=== PATIENT | male | born 1950 | race Caucasian/White ===

== ENCOUNTER 2016-11-03 07:32 | Day surgery (SDC) | payer BC ==
[2016-11-03] VITALS (11 sets, daily range): BP systolic 124–154; BP diastolic 70–89
[~2016-11-03] VITALS: Ht 188 cm; Wt 86.6 kg
[~2016-11-03 07:32] MED LIST: AMLODIPINE BESYL5 MG ORAL; LOSARTAN POTASS50 MG ORAL
[2016-11-03] MEDS ORDERED: Midazolam 2mg/2ml Inj ONE (09:00)
[2016-11-03] MEDS ORDERED: fentaNYL 100 mcg/2 mL IV ONE (09:00)
[2016-11-03] MEDS ORDERED: LR 1000ml ONE (09:00)
[2016-11-03] MEDS ORDERED: Sterile Water Irrig 1000ml IRRIG ONE (09:00)
[2016-11-03] MEDS ORDERED: Propofol 10mg/ml 20ml IV ONE (09:00)
[2016-11-03] MEDS ORDERED: NS Irrig 1000ml ONE (09:00)
--- NOTE | 2016-11-03 09:08 | Pre-Procedure Note/Attestation ---
Pre-Procedure Note/Attestation Complete Prior to Procedure Planned Procedure: right Procedure Narrative: repair of right inguinal hernia Indications for Procedure Pre-Operative Diagnosis: right inguinal hernia Attestation I attest that I discussed the nature of the procedure; its benefits; risks and complications; and alternatives (and the risks and benefits of such alternatives ), prior to the procedure, with the patient (or the patient's legal sales representative womens health). I attest that, if there was a reasonable possibility of needing a blood transfusion, the patient (or the patient's legal sales representative womens health) was given the [facility] standardized written summary, pursuant to the [place] Blood Safety Act ([place] Health and Safety Code # 1645, as amended). I attest that I re-evaluated the patient just prior to the surgery and that there has been no change in the patient's H&P, except as documented below: GENEVIEVE MYERS Nov 03, 2016 09:08
[2016-11-03] MEDS ORDERED: Bupivacaine w/Epi 0.5% 30ml Vial INJ ONE (09:15)
[2016-11-03] MEDS ORDERED: NS Irrig 1000ml IRRIG ONE (09:30)
[2016-11-03] MEDS ORDERED: LR 1000ml 1,000 ML IVLG SCH (09:43)
[2016-11-03] MEDS ORDERED: Hydromorphone 0.5mg/0.5ml inj IVP PRN (09:45)
[2016-11-03] MEDS ORDERED: LR 1000ml 1,000 ML IV SCH (09:45)
--- NOTE | 2016-11-03 09:48 | Anethesia Preoperative Eval ---
Anesthesia Pre-op PMH/ROS General Date of Evaluation: Nov 03, 2016 Time of Evaluation: 08:56 Anesthesiologist: Sarah ASA Score: ASA 2 Mallampati Score Class I : Soft palate, uvula, fauces, pillars visible Class II: Soft palate, uvula, fauces visible Class III: Soft palate, base of uvula visible Class IV: Only hard plate visible Mallampati Classification: Class II Surgeon: Fabian Diagnosis: Right Inguinal Hernia Surgical Procedure: Right inguinal herniorrhaphy Family History: no anesthesia problems Allergies: Coded Allergies: IODINE (Verified Allergy, Severe, 11/03/16) nausea, vomiting, difficulty of breathing Cultivated Oat Pollen (Verified Allergy, Mild, 11/03/16) sneezing Dust (Verified Allergy, Mild, 11/03/16) sneezing Medications: see eMAR Past Medical History Cardiovascular: Reports: HTN, Denies: CAD, RI, arrhythmia, other, valve dz Pulmonary: Denies: COPD, ZAKI, asthma, other Gastrointestinal/Genitourinary: Denies: CRI, ESRD, GERD, other Neurologic/Psychiatric: Denies: CVA, TIA, dementia, depression/anxiety, other Endocrine: Denies: DM, hypothyroidism, other, steroids HEENT: Denies: [place] (L), [place] (R), cataract (L), cataract (R), glaucoma, other Hematology/Immune: Denies: DVT, anemia, bleeding disorder, other Musculoskeletal/Integumentary: Denies: DDD, DJD, OA, RA, edema, other PMH Narrative: HTN PSxH Narrative: Knee surgery, trigger finger Anesthesia Pre-op Phys. Exam Physician Exam Last Vital Signs Date Time Temp Pulse Resp B/P Pulse Ox O2 Delivery O2 Flow Rate FiO2 11/03/16 08:13 97.5 63 18 130/80 98 Room Air Constitutional: NAD Neurologic: CN 2-12 intact Cardiovascular: RRR, no M/R/G Respiratory: CTA Gastrointestinal: S/NT/ND Airway Exam Mallampati Score: Class II MO: full ROM: full Teeth: intact Anesthesia Pre-op A/P Labs Wnl Studies Pre-op Studies: EKG - NSR Risk Assessment & Plan Assessment: Healthy hypertensive male for IH Plan: GA, LMA Status Change Before Surgery: No Pre-Antibiotics Drug: Ancef Given Within 1 Hr of Incision: Yes Time Given: 09:15 JAUN VILLALOBOS M.D. Nov 03, 2016 09:48
--- NOTE | 2016-11-03 09:50 | Immediate Post-Op Evaluation ---
Immediate Post-Op Evalulation Immediate Post-Op Evalulation Procedure: Right inguinal herniorrhaphy Date of Evaluation: Nov 03, 2016 Time of Evaluation: 10:28 IV Fluids: 700 Blood Pressure Systolic: 117 Blood Pressure Diastolic: 67 Pulse Rate: 80 Respiratory Rate: 22 O2 Sat by Pulse Oximetry: 100 Temperature (Fahrenheit): 98.1 Pain Score (1-10): 0 Nausea: No Vomiting: No Complications No complication Patient Status: reacts, patent, none Hydration Status: adequate Drug: Ancef Given Within 1 Hr of Incision: Yes Time Given: 09:15 JAUN VILLALOBOS M.D. Nov 03, 2016 09:49
[2016-11-03] MEDS ORDERED: Tylenol #3 tab (300mg/30mg) ORAL PRN (10:15)
[2016-11-03] MEDS ORDERED: HYDROmorphone 1mg/ml Carpuject SUBQ PRN (10:15)
--- NOTE | 2016-11-03 10:15 | Brief Operative Note ---
Immediate Post Operative Note Operative Note Pre-op Diagnosis: right inguinal hernia Procedure: repair of right inguinal hernia with mesh Post-op Diagnosis: same as pre-op Surgeon: iggy Anesthesiologist: debra Anesthesia: general Specimen: yes - hernia sac Complications: none Condition: stable Estimated Blood Loss: minimal Drains: none Implant(s) used?: No GENEVIEVE MYERS Nov 03, 2016 10:15
--- NOTE | 2016-11-03 10:22 | 48 Hour Post Anesthesia Eval ---
Post Anesthesia Evaluation Procedure: Right inguinal herniorrhaphy Date of Evaluation: Nov 03, 2016 Time of Evaluation: 10:58 Blood Pressure Systolic: 124 0: 70 Pulse Rate: 76 Respiratory Rate: 12 O2 Sat by Pulse Oximetry: 100 Airway: patent Nausea: No Vomiting: No Pain Intensity: 0 Hydration Status: adequate Cardiopulmonary Status: Stable Mental Status/LOC: patient returned to baseline Follow-up Care/Observations: As per surgery Post-Anesthesia Complications: No anesthetic complication Follow-up care needed: N/A JAUN VILLALOBOS M.D. Nov 03, 2016 10:22
[2016-11-03] MEDS ORDERED: Tylenol #3 tab (300mg/30mg) ONE (12:02)
--- NOTE | 2016-11-04 00:30 | Operative Note - Dictated ---
DATE OF OPERATION: 11/03/2016 SURGEON: Ernst Peralta M.D. HYDRAULIC PRESS OPERATOR SURGEON: None. ANESTHESIOLOGIST: Onel Smith M.D. ANESTHESIA: General. PREOPERATIVE DIAGNOSIS: Right inguinal hernia. POSTOPERATIVE DIAGNOSIS: Right inguinal hernia. OPERATION PERFORMED: Right inguinal hernia repair with Prolene mesh. FINDINGS AND INDICATIONS: The patient is very pleasant 66-year-old, originally from [facility], who has a history of approximately six weeks of increasing right inguinal pain with a bulge. He came to see me at the office on 10/28/2016, at which time, I examined him and found him to have the significant size, reducible inguinal hernia, which he was protecting with Truss. We were able to get a time for the procedure today and it was done in an uneventful fashion. At surgery, indeed a moderate size, narrow neck, indirect inguinal hernia sac was found, which was repaired as described and mesh was used to reinforce the pelvic floor. DESCRIPTION OF PROCEDURE: With the patient lying in the supine position on the operating table, under general anesthesia with the entire lower abdominal and right groin region, prepped and draped in the usual sterile fashion with Betadine, an oblique incision was carried out following skin lines in the right inguinal area. Subcutaneous tissues divided, the external oblique aponeurosis was identified, and opened in the direction of its fibers. Ilioinguinal nerve was then carefully dissected out of the way and the cord was isolated and skeletonized with indirect inguinal hernia sac identified, which was then carefully dissected free all the way down to the internal ring and once I opened it made sure there were no contents, I transfixed 2-0 Vicryl suture and the sac was then amputated and sent to pathology. The area was irrigated. Hemostasis was adequate. The pelvic floor was then reinforced by approximating this shelving edge of the inguinal ligament to the combined aponeurosis of the internal oblique and transversus abdominis muscles using a 2-0 Prolene continuous suture both above and below in a running fashion and a slit was made on the lateral aspect of the mesh to allow the cord structures to go through and the Prolene sutures snugly ligated recreating a nice snug internal ring. The area was again irrigated with normal saline. Hemostasis was adequate. The cord and the nerve were then replaced anatomically and the external oblique aponeurosis was then closed with a continuous 3-0 Vicryl suture and the skin with 4-0 Vicryl subcuticular sutures and Steri-Strips. Marcaine 0.5% with epinephrine 20 mL was injected for long-acting local anesthetic. The patient tolerated the procedure well. Estimated blood loss was less than 5 mL. Sponge and needle counts were correct. He went to the recovery room in stable condition after injecting some Marcaine and placing sterile dressing with Steri-Strips 4x4s and clear dressing. Ernst Peralta M.D. DR: Adilene JOB#: [id number] CC:
== END 2016-11-03 14:25 | disposition home or self-care (01) ==
LOC: SUR 07:32
DX: K40.90 Unilateral inguinal hernia, without obstruction or gangrene, not specified as recurrent (principal); I10 Essential (primary) hypertension; E78.5 Hyperlipidemia, unspecified; J30.1 Allergic rhinitis due to pollen; Z88.8 Allergy status to other drugs, medicaments and biological substances
CPT/HCPCS: 49505; C1781; J0690; J1170; J2250; J2405; J2704; J3010; J7120; 94003; 94150